=== PATIENT | male | born 1980 ===

== ENCOUNTER 2016-06-10 17:00 | Inpatient (IN) | payer OTHER ==
[2016-06-10] MEDS ORDERED: Sod Polystyrene Sulf 15 gm/60 ml Oral Susp PO STA (18:21)
--- NOTE | 2016-06-10 18:33 | ED PDOC ---
HPI: General Adult Time Seen by Provider: 06/10/16 17:40 Chief Complaint (Nursing): Abnormal Skin Integrity Chief Complaint (Provider): Pain to Erythematous Right Leg History Per: Patient History/Exam Limitations: no limitations Onset/Duration Of Symptoms: Days (x4) Current Symptoms Are (Timing): Still Present Additional Complaint(s): 17:40 Alok Fung is a 36 year old male with a history of diabetes that presents to the ED with a chief complaint of pain and redness to the right leg, along with an associated fever that began four days ago. The day after the onset of his symptoms, patient states the pain and redness in his right leg worsened, and that he developed swelling to the area. His fever still persists despite taking Motrin, his last dose of which was today at 1 PM. He denies any chest pain, shortness of breath, or trauma. Past Medical History Reviewed: Historical Data, Nursing Documentation, Vital Signs Vital Signs: Last Vital Signs Temp 100.8 F H 06/10/16 19:50 Pulse 84 06/10/16 19:50 Resp 16 06/10/16 19:50 BP 111/55 L 06/10/16 19:50 Pulse Ox 95 06/10/16 19:50 - Medical History PMH: Diabetes - Family History Family History: States: Unknown Family Hx - Home Medications Home Medications: Ambulatory Orders Medication Instructions Recorded No Known Home Med 06/10/16 - Allergies Allergies/Adverse Reactions: Allergies Allergy/AdvReac Type Severity Reaction Status Date / Time Penicillins AdvReac HEADACHE Verified 06/10/16 17:20 Review of Systems Constitutional: Positive for: Fever. Negative for: Other (patient denies experiencing any trauma) Cardiovascular: Positive for: Edema (swelling of right leg). Negative for: Chest Pain Respiratory: Negative for: Shortness of Breath Musculoskeletal: Positive for: Leg Pain (right leg pain) Skin: Positive for: Other (erythema on right leg) Physical Exam - Reviewed Nursing Documentation Reviewed: Yes Vital Signs Reviewed: Yes - Physical Exam Appears: Positive for: Non-toxic, No Acute Distress Head Exam: Positive for: ATRAUMATIC, NORMOCEPHALIC Skin: Positive for: Warm, Dry Eye Exam: Positive for: Normal appearance, EOMI, PERRL Cardiovascular/Chest: Positive for: Regular Rate, Rhythm. Negative for: Murmur Respiratory: Positive for: Normal Breath Sounds. Negative for: Wheezing Pulses-Dorsalis Pedis (L): 2+ Pulses-Dorsalis Pedis (R): 2+ Gastrointestinal/Abdominal: Positive for: Soft. Negative for: Tenderness Extremity: Positive for: Capillary Refill (<2 seconds), Swelling (swelling of right leg), Other (noncircumfirential erythema to distal right anterior leg, no break in skin integrity. Area is warm.) Neurologic/Psych: Positive for: Alert, Oriented - Laboratory Results Result Diagrams: 06/10/16 18:45 06/10/16 18:45 - ECG O2 Sat by Pulse Oximetry: 100 (RA) Pulse Ox Interpretation: Normal - Progress ED Course And Treament: Pt. evaluated by Dr. Torres in ED. Repeat HR: 84. Medical Decision Making Medical Decision Makin:01 Initial Impression: Right Leg Pain and Erythema with Associated Fever Initial Plan: * CBC * CMP * Blood Culture * Urine C&S * Venous Blood Gas Shock Panel * Tylenol 975 mg PO * Sodium polystyrene sulfonate 30 gm PO * Vancomycin 1 gm IV * Zosin 3.375 IV Q12H * X-Ray Right Tibia Fibia * US Lower Extremities Right Vein * Reevaluation * 17:[address] Torres, hospitalist, and arrangements made for admission. Scribe Attestation: Documented by Stella Daniel, acting as a scribe for Aly Hernandez PA-C. Provider Scribe Attestation: All medical record entries made by the Scribe were at my direction and personally dictated by me. I have reviewed the chart and agree that the record accurately reflects my personal performance of the history, physical exam, medical decision making, and the department course for this patient. I have also personally directed, reviewed, and agree with the discharge instructions and disposition. Disposition - Clinical Impression Clinical Impression: Cellulitis, Fever - Patient ED Disposition Is Patient to be Admitted: Yes - Disposition Disposition Time: 19:45 Condition: STABLE
[2016-06-10] MEDS ORDERED: Vancomycin 1 g Inj ONE (18:42)
[2016-06-10] MEDS ORDERED: Sodium Chloride 0.9% 1,000 ML IV STA (18:54)
[2016-06-10 19:04] LABS: VENOUS BLOOD GAS BASE EXCESS 4.9 mmol/L (0.0-2.0); VENOUS BLOOD GAS PCO2 50 mmHg (40-60)
[2016-06-10 19:10] LABS: BASO # 0.1 K/uL (0.0-0.2); BASO % 0.4 % (0.0-2.0); EOS % 0.3 % (0.0-4.0); HEMATOCRIT 40.7 % (35.0-51.0); LYMPH # 1.4 K/uL (1.0-4.3); LYMPH % 10.5 % (20.0-40.0); MEAN CELL VOLUME 92.5 fl (80.0-94.0); MEAN CORPUSCULAR HGB CONC 34.6 g/dL (33.0-37.0); MONO % 7.5 % (0.0-10.0); NEUT # 10.7 K/uL (1.8-7.0); NEUT % 81.3 % (50.0-75.0); RED CELL DISTRIBUTION WIDTH 12.7 % (11.5-14.5); WHITE BLOOD COUNT 13.1 K/uL (4.8-10.8)
[2016-06-10 19:31] LABS: ALB/GLOB RATIO 0.9 (1.0-2.1); ALKALINE PHOSPHATASE 85 U/L (38-126); ALT/SGPT 71 U/L (21-72); AST/SGOT 63 U/L (17-59); BILIRUBIN,TOTAL 1.2 mg/dl (0.2-1.3); BLOOD UREA NITROGEN 16 mg/dl (9-20); CARBON DIOXIDE 27 mmol/L (22-30); CHLORIDE 101 mmol/L (98-107); GFR AFRICAN-AMERICAN > 60; GLUCOSE,RANDOM 96 mg/dL (75-110); POTASSIUM 4.5 MMOL/L (3.6-5.0); SODIUM 138 mmol/l (132-148); TOTAL PROTEIN 8.4 G/DL (6.3-8.2)
--- NOTE | 2016-06-10 20:27 | US ---
EXAM: US Duplex Right Lower Extremity Veins CLINICAL HISTORY: 36 years old, male; Pain; Leg, lower; Right; Additional info: Rle pain ADDITIONAL HISTORY: Erythema in the right calf patient gives a history of infection and TECHNIQUE: Real-time ultrasound scan of the veins of the right lower extremity with color Doppler flow, spectral waveform analysis and compression. EXAM DATE/TIME: 06/10/2016 6:02 PM COMPARISON: There are no prior studies for comparison. FINDINGS: Deep veins: Common femoral, superficial femoral, popliteal and posterior tibial veins were evaluated. All veins examined are compressible. There are no intraluminal filling defects. There is expected blood flow on Doppler imaging. There is change in waveform with augmentation. Nodes: There is a 4.5 x 1.3 x 2.8 cm right inguinal node. IMPRESSION: No deep venous thrombosis in the visualized vascular segments of the right lower extremity
[2016-06-10] MEDS ORDERED: Piperacillin/Tazobact 3.375 gm Inj IVPB ONE (20:35)
[2016-06-10] MEDS: Piperacillin/Tazobact 3.375 GM in Sodium Chloride 0.9% 100 ML IVPB STA ×2 (20:44→20:45)
[2016-06-10] MEDS ORDERED: Pantoprazole 40 mg EC Tab PO ONE (20:46)
--- NOTE | 2016-06-10 20:56 | CP.PCM.HP ---
History of Present Illness - History of Present Illness History of Present Illness: Hospitalist Admission H&P (Patient was seen and examined 7:35 PM 06/10/16 ER Bed # 6. This history and physical performed with speaking with patient, who speaks some moldovan and with , and speaks full moldovan and german) PMD: NONE and has not seen a physician for some time. CODE STATUS: FULL CODE. NO Living Will/Advance Directive. Designates Aimee [phone] as his Health Care Proxy. 36 year old male who presents today by having his drive him here for complaints of redness/swelling of the right lower leg. 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 Then around 3 PM he noticed something wet on his right front lower leg. When he got home, he noticed some redness in the area but no pain. Then on Friday06/08/16 he started to experience pain in this area as well as if he had a fever. He measured his temperature at 100.7 and some peroxide to the right anterior lower leg and Advil. The temperature would go down however after a few hours he would feel feverish again and the pain the in the right lower leg would not subside. Then on Friday the pain and redness worsened as well as swelling of the right anterior lower leg and again, the fever would come back despite continued Advil use. He was at work today all morning but at 1 PM, as his symptoms were not improving, his asked his to bring him here to the ER. Currently upon FULL ROS, there is NO chest pain, NO palpitations, NO SOB/Cough/ Wheezing, NO dysphagia/odynophagia, NO abdominal pain, NO n/v/d/c, NO burning/ pain with urination, NO lightheadedness/dizziness, NO headache, NO new changes in vision/eye pain/loss of vision, NO new changes in hearing/ear pain/tinnitus, NO paresthesias, (+) Fever, (+) Edema (right lower anterior leg), (+) Skin changes: redness of the right anterior lower leg PMHx: Denies but states that he has gotten skin infections in the past easily by simply bumping his arms or legs PSHx. 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, (+) Tobacco: quit 1 month ago when he was smoking 3 cigarettes a day for 16 years, ( +) Alcohol: 1 beer a day, NO illicit drugs Family Hx: Son (ashtma), Daughter (asthma), Sister (DM2), Dad (DM2), Brother ( healthy) Present on Admission - Present on Admission Any Indicators Present on Admission: Yes History of DVT/PE: No History of Uncontrolled Diabetes: No Urinary Catheter: No Review of Systems - Review of Systems Review of Systems: Please see HPI Past Patient History - Past Medical History & Family History Pertinent Family History: Please see HPI - Past Social History Smoking Status: Never Smoked - PSYCHIATRIC Hx Substance Use: No - ANESTHESIA Hx Anesthesia: No Meds Allergies/Adverse Reactions: Allergies Allergy/AdvReac Type Severity Reaction Status Date / Time Penicillins AdvReac HEADACHE Verified 06/10/16 17:20 Physical Exam - Constitutional Appears: Non-toxic, No Acute Distress - Head Exam Head Exam: ATRAUMATIC, NORMAL INSPECTION, NORMOCEPHALIC - Eye Exam Eye Exam: EOMI, Normal appearance, PERRL Pupil Exam: NORMAL ACCOMODATION, PERRL - ENT Exam ENT Exam: Mucous Membranes Moist, Normal Exam, Normal Oropharynx, TM's Normal Bilaterally - Neck Exam Neck exam: Positive for: Normal Inspection Additional comments: NO cervical/submandibular/supraclavicular lymphadenopathy NO thyromegaly - Respiratory Exam Respiratory Exam: Clear to Auscultation Bilateral, NORMAL BREATHING PATTERN Additional comments: NO R/R/W - Cardiovascular Exam Cardiovascular Exam: REGULAR RHYTHM, +S1, +S2 Additional comments: NO M/R/G - GI/Abdominal Exam Additional comments: BSx4, Soft, NT, Central Obesity (Liver and Spleen could not be adequately palpated), NO guarding/rebound tenderness - Extremities Exam Additional comments: Pulses are strong and equal Capillary refill is 2 seconds Right Anterior Lower Leg: midway down the tibia there is an irregularly shaped shallow indentation that is not open measuring roughly 1 cm in diameter that is surrounded by erythema, edema, and very warm skin that is tender to slight palpation. The outer boundary of this entire area was demarcated with black ink for reference. There was no crepitus in this area appreciated. There is Right Inguinal Tender Lymphadenopathy present. - Neurological Exam Neurological exam: Alert, CN II-XII Intact, Normal Gait, Oriented x3 - Psychiatric Exam Psychiatric exam: Normal Affect, Normal Mood - Skin Additional comments: Please see extremities exam above Results - Vital Signs Recent Vital Signs: Last Vital Signs Temp 100.8 F H 06/10/16 19:50 Pulse 84 06/10/16 19:50 Resp 16 06/10/16 19:50 BP 111/55 L 06/10/16 19:50 Pulse Ox 100 06/10/16 19:58 - Labs Result Diagrams: 06/10/16 18:45 06/10/16 18:45 Assessment & Plan (1) Cellulitis of right leg Assessment and Plan: Admit to the Medical/Surgical unit Zosyn 3.375 gm IV Q6H Vancomycin 1 gm IV Q12H F/U Vancomycin Trough at 8:30 AM 06/12/16 (30 minutes prior to 4th dose) F/U Blood Culture F/U Urine Culture F/U MRSA Screen X Ray of Right Tibia/Fibula did not show any fracture, foriegn body, or periosteal elevation. F/U official report of reading Right Venous Doppler Leg: did not show any DVT Tylenol 650 mg PO Q6H till 10 PM 06/11/16 then Q6H PRN Fever NS @ 100 mL per hour for 2 more liters (he was given 1 liter in ER), considering the multiple medications cleared renally and the fever F/U further recommendation through consult ID Dr. Diogo Arana whose help will be appreciated Status: Acute (2) Prophylactic measure Assessment and Plan: Lovenox 40 mg SQ 1x/day for DVT Prophylaxis (DVT Risk Score of 2: obesity and edema) Protonix 40 mg PO 1x/day for GI Prophylaxis Florastor 250 mg PO 2x/day as he is on antibiotics Heart Healthy 2 gm Na Low Carbohydrate Diet F/U Labs 06/11/16 (in addition to the items mentioned in Assessment and Plan #1): CMP, CBC with diff, TSH, T4, HgBA1C (patient and were concerned about the possibility of Diabetes which he states that he does not have a history of), lipid panel Status: Acute
[2016-06-10] MEDS: Sodium Chloride 0.9% 2,000 ML IV SCH (21:51)
[2016-06-10] MEDS: Saccharomyces Boulardi 250 mg Cap PO SCH (23:43)
[2016-06-11] MEDS: Piperacillin/Tazobact 3.375 GM in Sodium Chloride 0.9% 100 ML IVPB SCH ×2 (03:29→09:42)
--- NOTE | 2016-06-11 07:21 | CARD ---
APPROVED REPORT EKG Measurement Heart [id number] <Conclusion> Normal sinus rhythm Normal ECG
[2016-06-11 07:25] LABS: BASO % 0.4 % (0.0-2.0); EOS % 0.2 % (0.0-4.0); HEMATOCRIT 38.2 % (35.0-51.0); LYMPH # 1.4 K/uL (1.0-4.3); LYMPH % 10.4 % (20.0-40.0); MEAN CORPUSCULAR HGB CONC 34.4 g/dL (33.0-37.0); MEAN PLATELET VOLUME 8.3 fl (7.2-11.7); MONO # 1.3 K/uL (0.0-0.8); MONO % 10.2 % (0.0-10.0); NEUT # 10.4 K/uL (1.8-7.0); NEUT % 78.8 % (50.0-75.0); NRBC % 0.2 % (0.0-0.0); RED CELL DISTRIBUTION WIDTH 13.1 % (11.5-14.5); WHITE BLOOD COUNT 13.2 K/uL (4.8-10.8)
[2016-06-11 08:27] LABS: ALB/GLOB RATIO 0.8 (1.0-2.1); ALKALINE PHOSPHATASE 79 U/L (38-126); ALT/SGPT 57 U/L (21-72); AST/SGOT 35 U/L (17-59); BILIRUBIN,TOTAL 1.5 mg/dl (0.2-1.3); BLOOD UREA NITROGEN 11 mg/dl (9-20); CALCIUM 8.1 mg/dL (8.4-10.2); CARBON DIOXIDE 26 mmol/L (22-30); CHLORIDE 104 mmol/L (98-107); CHOLESTEROL 95 mg/dL (0-199); GFR AFRICAN-AMERICAN > 60; GLUCOSE,RANDOM 99 mg/dL (75-110); POTASSIUM 3.5 MMOL/L (3.6-5.0); SODIUM 139 mmol/l (132-148); TOTAL PROTEIN 7.2 G/DL (6.3-8.2)
[2016-06-11 08:44] LABS: T4 5.61 ug/dl (5.5-11.0)
[2016-06-11 08:57] LABS: THYROID STIMULATING HORMONE 0.88 mIU/ML (0.46-4.68)
[2016-06-11] MEDS: Saccharomyces Boulardi 250 mg Cap PO SCH ×2 (09:44→17:09)
--- NOTE | 2016-06-11 09:59 | RAD ---
PROCEDURE: Radiographs of the right tibia and fibula. HISTORY: pain COMPARISON: None available. TECHNIQUE: Frontal and lateral views obtained. FINDINGS: BONES: No obvious cortical destructive changes. No acute fracture JOINT SPACES: Moderate soft tissue swelling OTHER FINDINGS: Overlying the moderate anterior soft tissue swelling in the mid pretibial region which could represent sequela of trauma versus infection. Clinical correlation recommended IMPRESSION: No evidence of acute fracture. Moderate soft tissue swelling mid pretibial region ; rule out sequela of trauma versus infection. Clinical correlation recommended infection not excluded. Less severe intra infiltration changes seen within the medial lateral soft tissues. If symptoms persist, osteomyelitis or fracture suspected clinically consider followup MRI
[2016-06-11] MEDS ORDERED: Potassium Chloride 20 mEq ER Tab PO ONE (10:30)
--- NOTE | 2016-06-11 11:36 | CP.PCM.PN ---
Subjective - Date & Time of Evaluation Date of Evaluation: 06/11/16 Time of Evaluation: 11:20 - Subjective Subjective: Patient seen and examined. Still having fever but right leg noticed to be improving with reduction of erythema Objective - Vital Signs/Intake and Output Vital Signs (last 24 hours): Temp Pulse Resp BP Pulse Ox 101.4 F H 71 18 106/60 96 06/11/16 09:51 06/11/16 08:28 06/11/16 08:28 06/11/16 08:28 06/11/16 08:28 - Medications Medications: Current Medications Acetaminophen (Tylenol 325mg Tab) 650 mg PO Q6 PRN PRN Reason: Fever >100.4 F Last Admin: 06/11/16 09:51 Dose: 650 mg Acetaminophen (Tylenol 325mg Tab) 650 mg PO Q6 PRN PRN Reason: Pain, Mild (1-3) Enoxaparin Sodium (Lovenox) 40 mg SC DAILY [facility] PRN Reason: Protocol Vancomycin HCl 1 gm/ Sodium (Chloride) 250 mls @ 166.667 mls/hr IVPB Q12 [facility] Piperacillin Sod/Tazobactam (Sod 3.375 gm/ Sodium Chloride) 100 mls @ 100 mls/ hr IVPB Q6 [facility] Last Admin: 06/11/16 09:42 Dose: 100 mls/hr Sodium Chloride (Sodium Chloride 0.9%) 2,000 mls @ 100 mls/hr IV .Q20H [facility] Stop: 06/11/16 20:40 Last Admin: 06/10/16 21:51 Dose: 100 mls/hr Pantoprazole Sodium (Protonix Ec Tab) 40 mg PO DAILY [facility] Saccharomyces Boulardii (Florastor) 250 mg PO BID [facility] Last Admin: 06/11/16 09:44 Dose: 250 mg - Labs Labs: 06/11/16 06:15 06/11/16 06:15 - Constitutional Appears: No Acute Distress - Head Exam Head Exam: ATRAUMATIC - Eye Exam Eye Exam: absent: Scleral icterus - ENT Exam ENT Exam: Mucous Membranes Moist - Neck Exam Neck Exam: absent: Meningismus - Respiratory Exam Respiratory Exam: absent: Rhonchi, Wheezes, Respiratory Distress - Cardiovascular Exam Cardiovascular Exam: REGULAR RHYTHM, +S1, +S2 - GI/Abdominal Exam GI & Abdominal Exam: Soft. absent: Tenderness - Rectal Exam Rectal Exam: Deferred - Extremities Exam Extremities Exam: absent: Normal Inspection (right leg erythema smaller than marked extension yesterday) - Neurological Exam Neurological Exam: Alert, Oriented x3 - Psychiatric Exam Psychiatric exam: Normal Affect - Skin Skin Exam: Dry, Intact Assessment and Plan (1) Cellulitis of right leg Status: Acute - Assessment and Plan (Free Text) Assessment: had fever early this morning with WBC remaining elevated erythema extension was reduced Vanco trough in am continue Vanco Azactam started instead of Zosyn ID consult with Dr Arana appreciated
[2016-06-11] MEDS: Sodium Chloride 0.9% 2,000 ML IV SCH (17:09)
--- NOTE | 2016-06-11 17:15 | CP.PCM.PN ---
Subjective - Date & Time of Evaluation Date of Evaluation: 06/11/16 Time of Evaluation: 17:10 - Subjective Subjective: I D NOTE FULL CONSULT DICTATED DIAGNOSIS:CELLULITIS /ERYSIPELAS OF LLE ETIOLOGY STAPH VS STREP RX :VANCOMYCIN/AZACTAM Objective - Vital Signs/Intake and Output Vital Signs (last 24 hours): Temp Pulse Resp BP Pulse Ox 98.6 F 67 20 116/67 98 06/11/16 16:28 06/11/16 16:28 06/11/16 16:28 06/11/16 16:28 06/11/16 16:28 - Medications Medications: Current Medications Acetaminophen (Tylenol 325mg Tab) 650 mg PO Q6 PRN PRN Reason: Fever >100.4 F Last Admin: 06/11/16 09:51 Dose: 650 mg Acetaminophen (Tylenol 325mg Tab) 650 mg PO Q6 PRN PRN Reason: Pain, Mild (1-3) Enoxaparin Sodium (Lovenox) 40 mg SC DAILY [facility] PRN Reason: Protocol Vancomycin HCl 1 gm/ Sodium (Chloride) 250 mls @ 166.667 mls/hr IVPB Q12 [facility] Last Admin: 06/11/16 12:00 Dose: 166.667 mls/hr Sodium Chloride (Sodium Chloride 0.9%) 2,000 mls @ 100 mls/hr IV .Q20H [facility] Stop: 06/11/16 20:40 Last Admin: 06/11/16 17:09 Dose: 100 mls/hr Aztreonam 1 gm/ Sodium (Chloride) 100 mls @ 100 mls/hr IVPB Q12 [facility] Pantoprazole Sodium (Protonix Ec Tab) 40 mg PO DAILY [facility] Saccharomyces Boulardii (Florastor) 250 mg PO BID [facility] Last Admin: 06/11/16 17:09 Dose: 250 mg
--- NOTE | 2016-06-11 18:39 | CON ---
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 The patient says that he had dropped a box on his rle which created an indentation/ulcer last . Apparently, he had not had any problem initially , but that night he noticed that there was trauma to the area, it was indented, and he started developing redness in that area, which became worse. He also stated he had significant pain. He had fever and chills. On Friday, the situation worsened. As the leg began to worsen, he ultimately came to the Emergency Room on Friday, mainly because of chills and sweats. Of note, there is conflicting statements in regards to allergies to penicillin. The attending physician states he told them there were no drug or food allergies, and when I discussed it with him, he said he is ALLERGIC TO PENICILLIN AND DEVELOPED HIVES, so really do not know what is correct. I discontinued the piperacillin and put him on Azactam along with continuing the vancomycin. PHYSICAL EXAMINATION: GENERAL: The patient is alert, cooperative, and oriented to time and place. HEENT: Within normal limits. NECK: Supple. LUNGS: Clear. HEART: Regular sinus rhythm. ABDOMEN: Soft, positive bowel sounds. No organomegaly. EXTREMITIES: Left lower extremity is within normal limits. Right pretibial area, he has an indentation probably. There is some ulceration and with an area of erythema spreading out from that area to just above the ankle and just below the knee. It can maybe be described as an erysipelas or the other name in the medical text book that say Tennyson's fire. Usually, this is caused by strep or staph. LABORATORY DATA: His white count is 13.2, hemoglobin 13.1, platelet count is 169. He also has 81% polys. GFR is greater than 60. Creatinine 0.8. Liver function tests: AST was initially 63, is now 35, and ALT initially 71, is now 57. X-ray of the tibia and fibula, no evidence of acute fracture. IMPRESSION: Moderate soft tissue swelling in mid pretibial region, rule out sequellae of trauma versus infection, likely a combination of both. Pending on the response, may need an MRI to possibly rule out an acute osteomyelitis. Of note, the patient has had multiple infections on this lower extremity. Cellulitis of RLE(Erysipelas) Gurwinder Arana MD cc: 61 TT: 06/11/2016 18:38:08 Confirmation # [id number] Dictation # [id number]
[2016-06-11 21:37] LABS: RBC URINE 2 /hpf (0-3); URINE BILIRUBIN NEGATIVE (NEGATIVE); URINE BLOOD NEGATIVE (NEGATIVE); URINE COLOR YELLOW (YELLOW); URINE GLUCOSE (UA) NEG (Normal); URINE KETONE NEGATIVE (NEGATIVE); URINE LEUKOCYTE ESTERASE NEG Leu/uL (Negative); URINE PROTEIN NEGATIVE (NEGATIVE); URINE UROBILINOGEN 0.2-1.0 mg/dL (0.2-1.0); WBC URINE < 1 /hpf (0-5)
[2016-06-11] MEDS: Aztreonam 1 GM in Sodium Chloride 0.9% 100 ML IVPB SCH (21:45)
[2016-06-11] MEDS: Enoxaparin 40 mg Syringe SC SCH (21:46)
[2016-06-11] MEDS: Pantoprazole 40 mg EC Tab PO SCH (21:47)
[2016-06-12] MEDS: Saccharomyces Boulardi 250 mg Cap PO SCH ×2 (09:10→17:45)
[2016-06-12] MEDS: Pantoprazole 40 mg EC Tab PO SCH (09:10)
[2016-06-12] MEDS: Enoxaparin 40 mg Syringe SC SCH (09:11)
[2016-06-12 10:20] LABS: BASO % 0.3 % (0.0-2.0); EOS # 0.1 K/uL (0.0-0.7); EOS % 1.1 % (0.0-4.0); HEMATOCRIT 40.3 % (35.0-51.0); LYMPH # 1.2 K/uL (1.0-4.3); LYMPH % 10.4 % (20.0-40.0); MEAN CELL VOLUME 93.5 fl (80.0-94.0); MEAN CORPUSCULAR HEMOGLOBIN 31.7 pg (27.0-31.0); MEAN CORPUSCULAR HGB CONC 33.9 g/dL (33.0-37.0); MEAN PLATELET VOLUME 8.1 fl (7.2-11.7); MONO # 0.5 K/uL (0.0-0.8); MONO % 4.4 % (0.0-10.0); NEUT # 9.6 K/uL (1.8-7.0); NEUT % 83.8 % (50.0-75.0); RED CELL DISTRIBUTION WIDTH 12.8 % (11.5-14.5); WHITE BLOOD COUNT 11.5 K/uL (4.8-10.8)
[2016-06-12] MEDS: Aztreonam 1 GM in Sodium Chloride 0.9% 100 ML IVPB SCH ×2 (12:17→20:42)
--- NOTE | 2016-06-12 15:42 | CP.PCM.PN ---
Subjective - Date & Time of Evaluation Date of Evaluation: 06/12/16 Time of Evaluation: 11:00 - Subjective Subjective: Pt seen and examined. Claimed he felt to be improving with less pain on his right leg but admitted having fever last night. Objective - Vital Signs/Intake and Output Vital Signs (last 24 hours): Temp Pulse Resp BP Pulse Ox 99.3 F 61 18 96/60 L 95 06/12/16 07:43 06/12/16 07:43 06/12/16 07:43 06/12/16 07:43 06/12/16 07:43 - Medications Medications: Current Medications Acetaminophen (Tylenol 325mg Tab) 650 mg PO Q6 PRN PRN Reason: Fever >100.4 F Last Admin: 06/11/16 19:56 Dose: 650 mg Acetaminophen (Tylenol 325mg Tab) 650 mg PO Q6 PRN PRN Reason: Pain, Mild (1-3) Enoxaparin Sodium (Lovenox) 40 mg SC DAILY [facility] PRN Reason: Protocol Last Admin: 06/12/16 09:11 Dose: 40 mg Vancomycin HCl 1 gm/ Sodium (Chloride) 250 mls @ 166.667 mls/hr IVPB Q12 [facility] Last Admin: 06/12/16 12:18 Dose: 166.667 mls/hr Aztreonam 1 gm/ Sodium (Chloride) 100 mls @ 100 mls/hr IVPB Q12 [facility] Last Admin: 06/12/16 12:17 Dose: 100 mls/hr Pantoprazole Sodium (Protonix Ec Tab) 40 mg PO DAILY [facility] Last Admin: 06/12/16 09:10 Dose: 40 mg Saccharomyces Boulardii (Florastor) 250 mg PO BID [facility] Last Admin: 06/12/16 09:10 Dose: 250 mg - Labs Labs: 06/12/16 10:16 - Constitutional Appears: No Acute Distress - Head Exam Head Exam: ATRAUMATIC - Eye Exam Eye Exam: absent: Scleral icterus - ENT Exam ENT Exam: Mucous Membranes Moist - Neck Exam Neck Exam: absent: Meningismus - Respiratory Exam Respiratory Exam: absent: Rhonchi, Wheezes, Respiratory Distress - Cardiovascular Exam Cardiovascular Exam: REGULAR RHYTHM, +S1, +S2 - GI/Abdominal Exam GI & Abdominal Exam: Soft. absent: Tenderness - Rectal Exam Rectal Exam: Deferred - Extremities Exam Additional comments: erythema on right leg appeared to be appeared to be fading and less tense - Neurological Exam Neurological Exam: Alert, Oriented x3 - Psychiatric Exam Psychiatric exam: Normal Affect - Skin Skin Exam: Dry, Intact Assessment and Plan (1) Cellulitis of right leg Status: Acute - Assessment and Plan (Free Text) Plan: 36 yo male admitted because of the redness and swelling of the right leg accompanied with fever. (1) Cellulitis of the right leg had fever again last night but patient admitted feeling better erythema extension was reduced and WBC down to 11.5 Vanco: 5.1 continue Yennyo and Azactam ID consult with Dr Arana appreciated
[2016-06-12 16:51] LABS: PROCALCITONIN SERUM 0.36 NG/ML (0.19-0.49)
[2016-06-13] MEDS: Pantoprazole 40 mg EC Tab PO SCH (09:24)
[2016-06-13] MEDS: Enoxaparin 40 mg Syringe SC SCH (09:25)
[2016-06-13] MEDS: Saccharomyces Boulardi 250 mg Cap PO SCH ×2 (09:25→16:18)
[2016-06-13] MEDS: Aztreonam 1 GM in Sodium Chloride 0.9% 100 ML IVPB SCH ×2 (10:27→20:04)
--- NOTE | 2016-06-13 11:06 | CP.PCM.PN ---
Subjective - Date & Time of Evaluation Date of Evaluation: 06/13/16 Time of Evaluation: 11:06 - Subjective Subjective: pt feeling improved states redness and warmth of cellulitis improving pain well controlled no other complaints vss nad no cp no dyspnea. Objective - Vital Signs/Intake and Output Vital Signs (last 24 hours): Temp Pulse Resp BP Pulse Ox 97.9 F 49 L 20 105/66 97 06/13/16 07:31 06/13/16 07:31 06/13/16 07:31 06/13/16 07:31 06/13/16 07:31 - Medications Medications: Current Medications Acetaminophen (Tylenol 325mg Tab) 650 mg PO Q6 PRN PRN Reason: Fever >100.4 F Last Admin: 06/11/16 19:56 Dose: 650 mg Acetaminophen (Tylenol 325mg Tab) 650 mg PO Q6 PRN PRN Reason: Pain, Mild (1-3) Enoxaparin Sodium (Lovenox) 40 mg SC DAILY [facility] PRN Reason: Protocol Last Admin: 06/13/16 09:25 Dose: 40 mg Vancomycin HCl 1 gm/ Sodium (Chloride) 250 mls @ 166.667 mls/hr IVPB Q12 [facility] Last Admin: 06/12/16 21:45 Dose: 166.667 mls/hr Aztreonam 1 gm/ Sodium (Chloride) 100 mls @ 100 mls/hr IVPB Q12 [facility] Last Admin: 06/13/16 10:27 Dose: 100 mls/hr Pantoprazole Sodium (Protonix Ec Tab) 40 mg PO DAILY [facility] Last Admin: 06/13/16 09:24 Dose: 40 mg Saccharomyces Boulardii (Florastor) 250 mg PO BID [facility] Last Admin: 06/13/16 09:25 Dose: 250 mg - Labs Labs: 06/12/16 10:16 - Constitutional Appears: Non-toxic, No Acute Distress - Head Exam Head Exam: ATRAUMATIC, NORMOCEPHALIC - Eye Exam Eye Exam: EOMI, Normal appearance, PERRL Pupil Exam: NORMAL ACCOMODATION - ENT Exam ENT Exam: Mucous Membranes Moist, Normal Oropharynx - Neck Exam Neck Exam: Full ROM, Normal Inspection - Respiratory Exam Respiratory Exam: Clear to Ausculation Bilateral, NORMAL BREATHING PATTERN. absent: Rales, Rhonchi, Wheezes - Cardiovascular Exam Cardiovascular Exam: RRR, +S1, +S2. absent: Gallop, Rubs - GI/Abdominal Exam GI & Abdominal Exam: Soft, Normal Bowel Sounds. absent: Tenderness, Mass, Organomegaly - Extremities Exam Extremities Exam: Full ROM, Normal Capillary Refill Additional comments: R lower leg area of cellulitis, improved from demarcations yesterday erythematous blanching small pustules - Back Exam Back Exam: absent: CVA tenderness (L), CVA tenderness (R) - Neurological Exam Neurological Exam: Alert, Awake, Oriented x3 - Psychiatric Exam Psychiatric exam: Normal Affect, Normal Mood - Skin Skin Exam: Dry, Warm Assessment and Plan - Assessment and Plan (Free Text) Plan: 36 yo male admitted because of the redness and swelling of the right leg accompanied with fever. (1) Cellulitis of the right leg afebrile wbc improved erythema extension was reduced Vanco: 5.1 continue Vanco and Azactam ID consult with Dr Arana appreciated
[2016-06-14 06:50] LABS: BASO % 0.6 % (0.0-2.0); EOS # 0.3 K/uL (0.0-0.7); EOS % 4.3 % (0.0-4.0); HEMATOCRIT 42.7 % (35.0-51.0); LYMPH # 1.7 K/uL (1.0-4.3); LYMPH % 29.3 % (20.0-40.0); MEAN CORPUSCULAR HEMOGLOBIN 31.4 pg (27.0-31.0); MEAN CORPUSCULAR HGB CONC 33.4 g/dL (33.0-37.0); MEAN PLATELET VOLUME 7.8 fl (7.2-11.7); MONO # 0.6 K/uL (0.0-0.8); MONO % 9.8 % (0.0-10.0); NEUT # 3.3 K/uL (1.8-7.0); NRBC % 0.1 % (0.0-0.0); RED CELL DISTRIBUTION WIDTH 12.6 % (11.5-14.5); WHITE BLOOD COUNT 5.9 K/uL (4.8-10.8)
[2016-06-14 07:14] LABS: ALKALINE PHOSPHATASE 83 U/L (38-126); ALT/SGPT 69 U/L (21-72); AST/SGOT 68 U/L (17-59); BILIRUBIN,TOTAL 0.5 mg/dl (0.2-1.3); BLOOD UREA NITROGEN 13 mg/dl (9-20); CALCIUM 8.8 mg/dL (8.4-10.2); CARBON DIOXIDE 28 mmol/L (22-30); CHLORIDE 105 mmol/L (98-107); GFR AFRICAN-AMERICAN > 60; GLUCOSE,RANDOM 101 mg/dL (75-110); MAGNESIUM 2.3 MG/DL (1.6-2.3); POTASSIUM 4.4 MMOL/L (3.6-5.0); SODIUM 142 mmol/l (132-148); TOTAL PROTEIN 7.6 G/DL (6.3-8.2)
[2016-06-14 07:28] LABS: ALB/GLOB RATIO 0.9 (1.0-2.1)
[2016-06-14] MEDS: Saccharomyces Boulardi 250 mg Cap PO SCH (08:59)
[2016-06-14] MEDS: Enoxaparin 40 mg Syringe SC SCH (08:59)
[2016-06-14] MEDS: Pantoprazole 40 mg EC Tab PO SCH (08:59)
[2016-06-14] MEDS: Aztreonam 1 GM in Sodium Chloride 0.9% 100 ML IVPB SCH (08:59)
[2016-06-14 16:37] VITALS: BP 100/60; PULSE 56; RESP 18; TEMP 98.1; O2SAT 96
--- NOTE | 2016-06-14 17:05 | CP.PCM.DIS ---
Provider - Provider Date of Admission: 06/11/16 11:31 Attending physician: Dayton Torres MD Consults: ID consult Time Spent in preparation of Discharge (in minutes): 15 Hospital Course - Lab Results Lab Results: Most Recent Lab Values WBC 5.9 K/uL (4.8-10.8) 06/14/16 06:15 RBC 4.54 Mil/uL (4.40-5.90) 06/14/16 06:15 Hgb 14.3 g/dL (12.0-18.0) 06/14/16 06:15 Hct 42.7 % (35.0-51.0) 06/14/16 06:15 MCV 94.0 fl (80.0-94.0) 06/14/16 06:15 MCH 31.4 pg (27.0-31.0) H 06/14/16 06:15 MCHC 33.4 g/dL (33.0-37.0) 06/14/16 06:15 RDW 12.6 % (11.5-14.5) 06/14/16 06:15 Plt Count 287 K/uL (130-400) 06/14/16 06:15 MPV 7.8 fl (7.2-11.7) 06/14/16 06:15 Neut % (Auto) 56.0 % (50.0-75.0) 06/14/16 06:15 Lymph % (Auto) 29.3 % (20.0-40.0) 06/14/16 06:15 Benson % (Auto) 9.8 % (0.0-10.0) 06/14/16 06:15 Eos % (Auto) 4.3 % (0.0-4.0) H 06/14/16 06:15 Baso % (Auto) 0.6 % (0.0-2.0) 06/14/16 06:15 Neut # 3.3 K/uL (1.8-7.0) 06/14/16 06:15 Lymph # 1.7 K/uL (1.0-4.3) 06/14/16 06:15 Benson # 0.6 K/uL (0.0-0.8) 06/14/16 06:15 Eos # 0.3 K/uL (0.0-0.7) 06/14/16 06:15 Baso # 0.0 K/uL (0.0-0.2) 06/14/16 06:15 ESR 107 mm/hr (0-15) H 06/12/16 05:30 pO2 16 mm/Hg (30-55) L 06/10/16 18:55 VBG pH 7.40 (7.32-7.43) 06/10/16 18:55 VBG pCO2 50 mmHg (40-60) 06/10/16 18:55 VBG HCO3 26.5 mmol/L 06/10/16 18:55 VBG Total CO2 32.5 mmol/L (22-28) H 06/10/16 18:55 VBG O2 Sat (Calc) 25.6 % (40-65) L 06/10/16 18:55 VBG Base Excess 4.9 mmol/L (0.0-2.0) H 06/10/16 18:55 VBG Potassium 3.9 mmol/L (3.6-5.2) 06/10/16 18:55 Sodium 137.0 mmol/L (132-148) 06/10/16 18:55 Chloride 101.0 mmol/L (98-107) 06/10/16 18:55 Glucose 93 mg/dL (75-110) 06/10/16 18:55 Lactate 0.9 mmol/L (0.7-2.1) 06/10/16 18:55 FiO2 21.0 % 06/10/16 18:55 Sodium 142 mmol/l (132-148) 06/14/16 06:15 Potassium 4.4 MMOL/L (3.6-5.0) 06/14/16 06:15 Chloride 105 mmol/L (98-107) 06/14/16 06:15 Carbon Dioxide 28 mmol/L (22-30) 06/14/16 06:15 Anion Gap 14 (10-20) 06/14/16 06:15 BUN 13 mg/dl (9-20) 06/14/16 06:15 Creatinine 0.8 mg/dL (0.8-1.5) 06/14/16 06:15 Est GFR ( Amer) > 60 06/14/16 06:15 Est GFR (Non-Af Amer) > 60 06/14/16 06:15 Random Glucose 101 mg/dL (75-110) 06/14/16 06:15 Hemoglobin A1c 5.6 % (4.2-6.5) 06/11/16 06:15 Calcium 8.8 mg/dL (8.4-10.2) 06/14/16 06:15 Magnesium 2.3 MG/DL (1.6-2.3) 06/14/16 06:15 Total Bilirubin 0.5 mg/dl (0.2-1.3) 06/14/16 06:15 AST 68 U/L (17-59) H D 06/14/16 06:15 ALT 69 U/L (21-72) 06/14/16 06:15 Alkaline Phosphatase 83 U/L (38-126) 06/14/16 06:15 Total Protein 7.6 G/DL (6.3-8.2) 06/14/16 06:15 Albumin 3.5 g/dL (3.5-5.0) 06/14/16 06:15 Globulin 4.1 gm/dL (2.2-3.9) H 06/14/16 06:15 Albumin/Globulin Ratio 0.9 (1.0-2.1) L 06/14/16 06:15 Triglycerides 66 mg/DL (0-149) 06/11/16 06:15 Cholesterol 95 mg/dL (0-199) 06/11/16 06:15 LDL Cholesterol Direct 52 mg/dL (0-129) 06/11/16 06:15 HDL Cholesterol 21 MG/DL (30-70) L 06/11/16 06:15 Procalcitonin 0.36 NG/ML (0.19-0.49) 06/12/16 05:30 Thyroxine (T4) 5.61 ug/dl (5.5-11.0) 06/11/16 06:15 TSH 3rd Generation 0.88 mIU/ML (0.46-4.68) 06/11/16 06:15 Venous Blood Potassium 3.9 mmol/L (3.6-5.2) 06/10/16 18:55 Urine Color Yellow (YELLOW) 06/11/16 21:26 Urine Clarity Clear (Clear) 06/11/16 21:26 Urine pH 7.0 (5.0-8.0) 06/11/16 21: Ur Specific [place] 1.017 (1.003-1.030) 06/11/16 21: Urine Protein Negative mg/dL (NEGATIVE) 06/11/16 21: Urine Glucose (UA) Neg mg/dL (Normal) 06/11/16 21: Urine Ketones Negative mg/dL (NEGATIVE) 06/11/16 21: Urine Blood Negative (NEGATIVE) 06/11/16 21: Urine Nitrate Negative (NEGATIVE) 06/11/16 21: Urine Bilirubin Negative (NEGATIVE) 06/11/16 21: Urine Urobilinogen 0.2-1.0 mg/dL (0.2-1.0) 06/11/16 21: Ur Leukocyte Esterase Neg Gunn[place]/uL (Negative) 06/11/16 21: Urine RBC (Auto) 2 /hpf (0-3) 06/11/16 21: Urine Microscopic WBC < 1 /hpf (0-5) 06/11/16 21: Vancomycin Trough 5.1 ug/mL (5.0-10.0) 06/12/16 09:40 Teichoic Acid Antibody TNP 06/12/16 05:30 Anti-Staphylolysin O Negative (NEGATIVE) 06/12/16 05:30 - Hospital Course Hospital Course: 36 year old male with no PMH presented complaining of redness/swelling of the right lower leg. 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 Then around 3 PM he noticed something wet on his right front lower leg. When he got home, he noticed some redness in the area but no pain. Then on Friday06/08/16 he started to experience pain in this area as well as if he had a fever. He measured his temperature at 100.7 and some peroxide to the right anterior lower leg and Advil. The temperature would go down however after a few hours he would feel feverish again and the pain the in the right lower leg would not subside. Then on Friday the pain and redness worsened as well as swelling of the right anterior lower leg and again, the fever would come back despite continued Advil use. Since his symptoms did not improve he decided to come to ER . He wsa found to have fever ,, elevated WBC 13 k, erythema and swelling to RLE from ankle to th e knee. Doppler Us showed on DVT. Imaging showed no fractures or air He was admitted for RLE cellulitis and started on IV antibiotics. ID was consulted Patient was given Azactam and Vancomycin Iv with improvement of erythema and pain He is hemodynamically stable, afebrile for > 48 hours, cultures with no growth. Discussed with ID. june discharge patient on Po Clindamycin for 7 more days. Discharge Exam - Head Exam Head Exam: ATRAUMATIC, NORMOCEPHALIC - Eye Exam Eye Exam: EOMI, Normal appearance, PERRL Pupil Exam: NORMAL ACCOMODATION - ENT Exam ENT Exam: Mucous Membranes Moist, Normal Exam - Neck Exam Neck exam: Full Rom, Normal Inspection - Respiratory Exam Respiratory Exam: Clear to PA & Lateral, NORMAL BREATHING PATTERN. absent: Rales, Rhonchi, Wheezes - Cardiovascular Exam Cardiovascular Exam: REGULAR RHYTHM, RRR, +S1, +S2. absent: JVD - GI/Abdominal Exam GI & Abdominal Exam: Normal Bowel Sounds, Soft. absent: Distended, Guarding, Rebound, Tenderness - Rectal Exam Rectal Exam: Deferred - Extremities Exam Extremities exam: normal capillary refill, normal inspection, pedal pulses present Additional comments: RLE mid nicholas small area of erythema, no tenderness, no fluctuation - Back Exam Back exam: NORMAL INSPECTION - Neurological Exam Neurological exam: Alert, CN II-XII Intact, Oriented x3, Reflexes Normal - Psychiatric Exam Psychiatric exam: Normal Affect, Normal Mood - Skin Skin Exam: Dry, Normal Color, Warm Discharge Plan - Discharge Medications Prescriptions: Clindamycin [Cleocin] 300 mg PO Q8 #21 cap - Follow Up Plan Condition: STABLE Disposition: HOME/ ROUTINE Patient education suggested?: Yes Instructions: Cellulitis (DC) Referrals: [facility] [Outside]
== END 2016-06-14 16:55 | disposition home or self-care (01) | DRG 277 ==
LOC: H.ER 17:00 → H.ERHOLD 19:42 → H.MEDSURG1 22:05 → OBSVTOIN 06-11 11:31 → H.MEDSURG1 06-11 23:02
PROVIDERS: ADMIT Family Medicine; ATTEND Family Medicine
DX: L03.115 Cellulitis of right lower limb (principal); L97.819 Non-pressure chronic ulcer of other part of right lower leg with unspecified severity; A46 Erysipelas; E66.9 Obesity, unspecified; Z68.36 Body mass index [BMI] 36.0-36.9, adult; F17.210 Nicotine dependence, cigarettes, uncomplicated; Z88.0 Allergy status to penicillin

== ENCOUNTER 2017-07-14 18:50 | Emergency (ER) | payer SELFPAY ==
[2017-07-14 20:47] VITALS: BP 116/68; PULSE 56; RESP 18; TEMP 97.9; O2SAT 100
--- NOTE | 2017-07-14 21:43 | ED PDOC ---
HPI: Skin/Bite Injury Time Seen by Provider: 07/14/17 20:49 Chief Complaint (Nursing): Abnormal Skin Integrity Chief Complaint (Provider): Abnormal Skin Integrity History Per: Patient History/Exam Limitations: no limitations Onset/Duration Of Symptoms: Days (2) Current Symptoms Are (Timing): Still Present Location Of Injury: Right: Leg Quality Of Symptoms: Itching Additional Complaint(s): 37 year old male presents to the ED with a pruritic blister like rash on right leg that began to develop yesterday. Today, the rash traveled to his left forearm, left side of neck and right side of face. States he had cellulitis on his right leg 1 year ago. He is concerned that it might turn into cellulitis again. Patient denies history of penicillin allergy stating that he has had it in the past without reaction. Denies fever, trauma. Past Medical History Reviewed: Historical Data, Nursing Documentation, Vital Signs Vital Signs: Last Vital Signs Temp 97.9 F 07/14/17 20:45 Pulse 56 L 07/14/17 20:45 Resp 18 07/14/17 20:45 BP 116/68 07/14/17 20:45 Pulse Ox 100 07/15/17 13:04 - Medical History PMH: Denies: Diabetes, Chronic Kidney Disease - Surgical History Surgical History: No Surg Hx - Family History Family History: States: No Known Family Hx - Home Medications Home Medications: Ambulatory Orders Medication Instructions Recorded Clindamycin [Cleocin] 300 mg PO Q8 #21 cap 06/14/16 Cephalexin [cephalexin] 500 mg PO Q6 #28 cap 07/14/17 Methylprednisolone [Medrol Dose 4 mg PO DAILY #21 mg 07/14/17 Pack (21 tabs)] Review of Systems ROS Statement: Except As Marked, All Systems Reviewed And Found Negative Skin: Positive for: Rash (right leg and face, as well as left forearm and neck) Physical Exam - Reviewed Nursing Documentation Reviewed: Yes Vital Signs Reviewed: Yes - Physical Exam Appears: Positive for: Non-toxic, No Acute Distress Head Exam: Positive for: ATRAUMATIC, NORMOCEPHALIC Skin: Positive for: Rash (vesicles arranged in linear array with minimal surr erythema on anterior right leg, left Ac fossa, left side neck and right nasolabial fold ) Eye Exam: Positive for: EOMI, Normal appearance, PERRL Neurologic/Psych: Positive for: Alert, Oriented (x 3). Negative for: Motor/ Sensory Deficits - ECG O2 Sat by Pulse Oximetry: 100 (RA) Pulse Ox Interpretation: Normal Disposition - Clinical Impression Clinical Impression: Rhus dermatitis, Cellulitis - Patient ED Disposition Is Patient to be Admitted: No - Disposition Referrals: [facility] [Outside] [facility] [Outside] Disposition: Routine/Home Disposition Time: 23:00 Condition: STABLE Additional Instructions: Follow up with PMD in 2 days for further evaluation. Return to ED immediately if symptoms worsen. Prescriptions: Cephalexin [cephalexin] 500 mg PO Q6 #28 cap Methylprednisolone [Medrol Dose Pack (21 tabs)] 4 mg PO DAILY #21 mg Instructions: Poison [place], Cellulitis (Skin Infection), Adult (DC) Forms: [facility] (Gambian) Print Language: KHMER
== END 2017-07-14 23:26 | disposition home or self-care (01) ==
LOC: H.ER 18:50
DX: L03.115 Cellulitis of right lower limb (principal); L30.9 Dermatitis, unspecified

== ENCOUNTER 2017-07-20 18:49 | Emergency (ER) | payer OTHER ==
[2017-07-20 18:58] VITALS: BP 121/58; RESP 16; O2SAT 96
--- NOTE | 2017-07-20 19:13 | ED PDOC ---
HPI: Skin/Bite Injury Time Seen by Provider: 07/20/17 18:59 Chief Complaint (Nursing): Abnormal Skin Integrity Chief Complaint (Provider): Rash History Per: Patient History/Exam Limitations: no limitations Onset/Duration Of Symptoms: Days Current Symptoms Are (Timing): Still Present Location Of Injury: Right: Leg, Neck, Left: Arm Quality Of Symptoms: Itching Severity: None Additional Complaint(s): 37 year old male presents to the emergency department complaining of persistent rash to right leg, left arm and left side of neck that he first noticed 2 weeks ago after he was exposed to poison lili. Patient was seen a few days in ED and given rx for keflex and medrol dose pack. He completed medrol dose pack and has 2 days left of keflex but has not noticed improvement to rash. Patient denies fever or chills. No drainage from wounds. PMD: none Past Medical History Reviewed: Historical Data, Nursing Documentation, Vital Signs Vital Signs: Last Vital Signs Temp 97.2 F L 07/20/17 18:51 Pulse 93 H 07/20/17 18:51 Resp 16 07/20/17 18:51 BP 121/58 L 07/20/17 18:51 Pulse Ox 96 07/20/17 19:20 - Medical History PMH: No Chronic Diseases - Surgical History Surgical History: No Surg Hx - Family History Family History: States: No Known Family Hx - Living Arrangements Living Arrangements: With Family - Social History Current smoker - smoking cessation education provided: No Ex-Smoker (has not smoked in the last 12 months): No Alcohol: None Drugs: Denies - Home Medications Home Medications: Ambulatory Orders Medication Instructions Recorded Clindamycin [Cleocin] 300 mg PO Q8 #21 cap 06/14/16 Cephalexin [cephalexin] 500 mg PO Q6 #28 cap 07/14/17 Methylprednisolone [Medrol Dose 4 mg PO DAILY #21 mg 07/14/17 Pack (21 tabs)] Amoxicillin/Clavulanate [Augmentin 1 tab PO BID #14 tab 07/20/17 875 MG-125 MG] Clindamycin [Cleocin] 300 mg PO QID #28 cap 07/20/17 predniSONE [predniSONE Tab] 10 mg PO ASDIR #43 tab 07/20/17 - Allergies Allergies/Adverse Reactions: Allergies Allergy/AdvReac Type Severity Reaction Status Date / Time No Known Allergies Allergy Verified 07/20/17 18:51 Review of Systems ROS Statement: Except As Marked, All Systems Reviewed And Found Negative Constitutional: Negative for: Fever, Chills Skin: Positive for: Rash Physical Exam - Reviewed Nursing Documentation Reviewed: Yes Vital Signs Reviewed: Yes - Physical Exam Appears: Positive for: Non-toxic, No Acute Distress Skin: Positive for: Normal Color, Warm, Dry, Rash (Urticarial and pustular rash to right leg, right side of neck and left arm) Eye Exam: Positive for: Normal appearance Neck: Positive for: Normal Cardiovascular/Chest: Positive for: Regular Rate, Rhythm, Chest Non Tender. Negative for: Tachycardia Respiratory: Positive for: Normal Breath Sounds. Negative for: Rales, Rhonchi, Wheezing, Respiratory Distress Neurologic/Psych: Positive for: Alert, Oriented, Gait - ECG O2 Sat by Pulse Oximetry: 96 (RA) Pulse Ox Interpretation: Normal Medical Decision Making Medical Decision Makin Initial Impression 37 year old male presenting with poison lili dermatitis and cellulitis Patient is afebrile, well appearing, nontoxic appearing. Initial Plan: * SOLU-medrol 125 mg IM Patient was advised to stop taking keflex. Patient is medically stable and will be discharged home with prescription for clindamycin, augmentin and prednisone taper. Patient states he has follow up with tie man this coming . Documented by Padmaja Araiza acting as a scribe for Denia Galvan PA-C. All medical record entries made by the Scribe were at my direction and personally dictated by me. I have reviewed the chart and agree that the record accurately reflects my personal performance of the history, physical exam, medical decision making, and the department course for this patient. I have also personally directed, reviewed, and agree with the discharge instructions and disposition. Disposition - Clinical Impression Clinical Impression: Poison lili dermatitis, Cellulitis - Patient ED Disposition Is Patient to be Admitted: No Counseled Patient/Family Regarding: Studies Performed, Diagnosis, Need For Followup, Rx Given - Disposition Referrals: [facility] [Outside] Disposition: Routine/Home Disposition Time: 20:04 Condition: STABLE Additional Instructions: TAKE RX MEDS DIRECTED. OVER THE COUNTER BENADRYL FOR ITCHING. DO NOT APPLY ANY TOPICAL CREAMS. KEEP SKIN CLEAN AND DRY. FOLLOW UP SCHEDULED THIS WEEK WITH BALANCE CLERK. Prescriptions: Amoxicillin/Clavulanate [Augmentin 875 MG-125 MG] 1 tab PO BID #14 tab Clindamycin [Cleocin] 300 mg PO QID #28 cap predniSONE [predniSONE Tab] 10 mg PO ASDIR #43 tab Instructions: Cellulitis (Skin Infection), Adult (DC), Poison [place], Poison [place], Poison [place] (DC) Forms: [facility] (Irish), [facility] ED School/Work Excuse
[2017-07-20 20:33] VITALS: PULSE 88; TEMP 98.3
== END 2017-07-20 20:32 | disposition home or self-care (01) ==
LOC: H.ER 18:49
DX: L23.7 Allergic contact dermatitis due to plants, except food (principal)
CPT/HCPCS: 96372; 99282; J2930